=== PATIENT | female | born 1980 | race Two or more races ===

== ENCOUNTER 2018-01-17 01:30 | Emergency (ER) | payer OTHER ==
[~2018-01-17] VITALS: Ht 177.8 cm; Wt 150.6 kg
[2018-01-17] MEDS ORDERED: PEPCID40 MG PO (06:20)
[2018-01-17] MEDS ORDERED: LEVSIN/SL0.125 MG SL (06:20)
== END 2018-01-17 06:23 | disposition home or self-care (01) ==
LOC: ER 01:30
DX: K80.20 Calculus of gallbladder without cholecystitis without obstruction (principal); R10.11 Right upper quadrant pain